=== PATIENT | male | born 1955 | race Caucasian/White ===

== ENCOUNTER 2021-05-20 11:36 | Day surgery (SDC) | payer OTHER ==
[~2021-05-20] VITALS: Ht 180.3 cm; Wt 119.1 kg
[2021-05-20] MEDS ORDERED: FINA5TAB4 PO (12:23)
[2021-05-20] MEDS ORDERED: SILD20TA2 PO (12:23)
[2021-05-20] MEDS ORDERED: TAMS-11 PO (12:23)
[2021-05-20] MEDS ORDERED: DILT60CA PO (12:23)
[2021-05-20] MEDS ORDERED: CHLORHEXIDINE 15 ML UDC PO ONE (12:30)
[2021-05-20] MEDS ORDERED: LACTATED RINGERS 1,000 ML IV SCH (12:30)
[2021-05-20 12:52] VITALS: BP 142/93
[2021-05-20] MEDS ORDERED: GEMCITABINE HCL 1,000 MG in SODIUM CHLORIDE 0.9% 23.7 ML IS ONE (14:00)
[2021-05-20] MEDS ORDERED: DEXAMETHASONE 4 MG/ML, 5ML ONE (14:18)
[2021-05-20] MEDS ORDERED: ROCURONIUM 10 MG/ML,10ML ONE (14:18)
[2021-05-20] MEDS ORDERED: ONDANSETRON 2MG/ML, 2ML ONE (14:18)
[2021-05-20] MEDS ORDERED: PROPOFOL 10 MG/ML, 20ML ONE (14:18)
[2021-05-20] MEDS ORDERED: SUCCINYLCHOLINE 20 MG/ML, 10ML ONE (14:18)
[2021-05-20] MEDS ORDERED: CEFAZOLIN 1,000 MG ONE (14:18)
[2021-05-20] MEDS ORDERED: MIDAZOLAM 1 MG/ML, 2ML ONE (14:26)
[2021-05-20] MEDS ORDERED: FENTANYL PF 100 MCG/2ML ONE (14:36)
[2021-05-20] MEDS ORDERED: FENTANYL PF 100 MCG/2ML IV PRN (15:30)
[2021-05-20] MEDS ORDERED: ONDANSETRON 2MG/ML, 2ML IVPush PRN (15:30)
[2021-05-20] MEDS ORDERED: hydrALAzine 20 MG/ML, 1ML IV PRN (15:30)
[2021-05-20] MEDS ORDERED: OXYcodone 5 MG/5 ML ORAL.SOL UDC PO PRN (15:30)
[2021-05-20] MEDS ORDERED: LABETALOL 5MG/ML, 20ML IV PRN (15:30)
[2021-05-20] MEDS ORDERED: PROMETHAZINE 25 MG/ML, 1ML IV PRN (15:30)
[2021-05-20] MEDS ORDERED: KETOROLAC 30 MG/1 ML IV PRN (15:30)
[2021-05-20] MEDS ORDERED: ALBUTEROL SULFATE 2.5 MG/3 ML NPPB PRN (15:30)
[2021-05-20] MEDS ORDERED: METOCLOPRAMIDE 5 MG/ML, 2ML IV PRN (15:30)
[2021-05-20] MEDS ORDERED: MEPERIDINE/PF 25MG/0.5ML IVPush PRN (15:30)
[2021-05-20] MEDS ORDERED: DIAZEPAM 5 MG/ML, 2ML IV PRN ×2 (15:30)
[2021-05-20] MEDS ORDERED: HYDROmorphone 1 MG/ML, 1ML INJ IV PRN (15:30)
== END 2021-05-20 17:05 | disposition home or self-care (01) ==
LOC: OR 11:36 → OUT 17:05
PROVIDERS: ATTEND Urology
DX: C67.9 Malignant neoplasm of bladder, unspecified (principal); N35.919 Unspecified urethral stricture, male, unspecified site; N40.0 Benign prostatic hyperplasia without lower urinary tract symptoms; I10 Essential (primary) hypertension; I48.91 Unspecified atrial fibrillation; Z20.822 Contact with and (suspected) exposure to COVID-19; Z79.899 Other long term (current) drug therapy
CPT/HCPCS: 52234; 74018; 87635; 93005; J0330; J0690; J1100; J2250; J2405; J2704; J3010; J7120; 76000